=== PATIENT | male | born 1940 | race Caucasian/White ===

== ENCOUNTER 2021-06-30 17:21 | Inpatient (IN) ==
[2021-06-30] MEDS ORDERED: Furosemide 40 MG/4 ML VIAL IVP ONE (17:46)
[2021-06-30] MEDS ORDERED: Naloxone 0.4 MG/ML INJ IVP PRN (20:08)
[2021-06-30] MEDS ORDERED: Melatonin 3 MG TABLET PO PRN (20:08)
[2021-06-30 20:37] LABS: Hematocrit 23.3 % (37.5-50.1); Hemoglobin 7.1 g/dL (12.9-16.9); Mean Corpuscular HGB Conc 30.5 g/dL (31.6-35.5); Mean Corpuscular Hemoglobin 26.7 pg (28.0-33.3); Mean Corpuscular Volume 87.6 fL (83.0-100.0); Mean Platelet Volume 10.3 fL (9.4-12.4); Platelet Count 456 K/mcL (140-400); Red Blood Count 2.66 M/mcL (4.19-5.50); White Blood Count 12.5 K/mcL (4.3-11.1)
[2021-06-30 20:47] LABS: Prothrombin Time 22.6 Seconds (9.4-12.1)
[2021-06-30 20:59] LABS: Albumin/Globulin Ratio 1.3 (1.1-2.2); Bilirubin,Total 0.4 mg/dL (0.3-1.0); Calcium 9.3 mg/dL (8.6-10.3); Globulin 3.2 g/dL (2.4-3.5); Total Protein 7.2 g/dL (6.4-8.9)
[2021-07-01 01:04] LABS: Basophils # 0.1 K/mcL (0.0-0.2); Basophils % 0.5 %; Eosinophils # 0.1 K/mcL (0.0-0.6); Eosinophils % 1.2 %; Hematocrit 21.5 % (37.5-50.1); Hemoglobin 6.6 g/dL (12.9-16.9); Immature Granulocytes % 0.4 % (0-4); Lymphocytes # 3.3 K/mcL (0.6-4.6); Lymphocytes % 29.3 %; Mean Corpuscular HGB Conc 30.7 g/dL (31.6-35.5); Mean Corpuscular Hemoglobin 26.8 pg (28.0-33.3); Mean Corpuscular Volume 87.4 fL (83.0-100.0); Mean Platelet Volume 10.4 fL (9.4-12.4); Monocytes # 1.4 K/mcL (0.0-1.3); Neutrophils # 6.4 K/mcL (1.6-8.9); Platelet Count 423 K/mcL (140-400); Red Blood Count 2.46 M/mcL (4.19-5.50); Red Cell Distribution Width 18.1 % (11.5-14.5); Segmented Neutrophils % 56.6 %; White Blood Count 11.3 K/mcL (4.3-11.1)
[2021-07-01 01:13] LABS: INR 1.8; Prothrombin Time 19.6 Seconds (9.4-12.1)
[2021-07-01 01:15] LABS: Activated Partial Thrombo Time 34.4 Seconds (26.0-36.0)
[2021-07-01 01:18] LABS: Potassium 4.8 mEq/L (3.5-5.1)
[2021-07-01] MEDS: Pantoprazole 40 MG VIAL IVP SCH ×2 (02:42→12:27)
[2021-07-01] MEDS: Furosemide 40 MG/4 ML VIAL IVP SCH (08:09)
[2021-07-01] MEDS: Finasteride 5 MG TABLET PO SCH (08:09)
[2021-07-01 08:25] LABS: Hematocrit 20.7 % (37.5-50.1); Hemoglobin 6.3 g/dL (12.9-16.9)
[2021-07-01] MEDS ORDERED: Aspirin 81 MG TAB.CHEW PO SCH (09:00)
[2021-07-01] MEDS ORDERED: 0.9 % Sodium Chloride 250 ML ONE (12:10)
[2021-07-01] MEDS ORDERED: *HR* Propofol 200 MG/20 ML VIAL IVP ONE (14:42)
[2021-07-01] MEDS ORDERED: Lidocaine -MPF 2% 5 ML VIAL ONE (14:45)
[2021-07-01] MEDS: carvediloL 6.25 MG TABLET PO SCH (15:58)
[2021-07-01] MEDS ORDERED: Pantoprazole 40 MG VIAL IVP SCH (22:00)
[2021-07-02] MEDS: Pantoprazole 40 MG VIAL IVP SCH ×2 (00:48→13:31)
[2021-07-02 04:26] LABS: Hematocrit 21.8 % (37.5-50.1); Hemoglobin 6.9 g/dL (12.9-16.9); Mean Corpuscular HGB Conc 31.7 g/dL (31.6-35.5); Mean Corpuscular Hemoglobin 27.5 pg (28.0-33.3); Mean Corpuscular Volume 86.9 fL (83.0-100.0); Mean Platelet Volume 10.4 fL (9.4-12.4); Platelet Count 397 K/mcL (140-400); Red Blood Count 2.51 M/mcL (4.19-5.50); Red Cell Distribution Width 17.2 % (11.5-14.5); White Blood Count 11.5 K/mcL (4.3-11.1)
[2021-07-02 04:44] LABS: Calcium 8.7 mg/dL (8.6-10.3); Potassium 5.1 mEq/L (3.5-5.1)
[2021-07-02] MEDS: carvediloL 6.25 MG TABLET PO SCH ×2 (07:51→18:07)
[2021-07-02] MEDS: Furosemide 40 MG/4 ML VIAL IVP SCH (07:51)
[2021-07-02] MEDS: Finasteride 5 MG TABLET PO SCH (07:51)
[2021-07-02] MEDS ORDERED: 0.9 % Sodium Chloride 250 ML ONE (08:51)
[2021-07-02 13:03] LABS: Hematocrit 27.3 % (37.5-50.1)
[2021-07-02 13:05] LABS: Hemoglobin 8.5 g/dL (12.9-16.9)
[2021-07-02 18:39] LABS: Hematocrit 27.1 % (37.5-50.1); Hemoglobin 8.5 g/dL (12.9-16.9)
[2021-07-03] MEDS: Pantoprazole 40 MG VIAL IVP SCH (01:39)
[2021-07-03 02:57] LABS: Hematocrit 25.7 % (37.5-50.1); Hemoglobin 8.1 g/dL (12.9-16.9); Mean Corpuscular HGB Conc 31.5 g/dL (31.6-35.5); Mean Corpuscular Volume 88.9 fL (83.0-100.0); Mean Platelet Volume 10.3 fL (9.4-12.4); Platelet Count 370 K/mcL (140-400); Red Blood Count 2.89 M/mcL (4.19-5.50); Red Cell Distribution Width 17.6 % (11.5-14.5); White Blood Count 11.2 K/mcL (4.3-11.1)
[2021-07-03 03:13] LABS: Calcium 8.6 mg/dL (8.6-10.3); Potassium 5.4 mEq/L (3.5-5.1)
[2021-07-03] MEDS: Finasteride 5 MG TABLET PO SCH (07:40)
[2021-07-03] MEDS: carvediloL 6.25 MG TABLET PO SCH (07:40)
[2021-07-03] MEDS: Furosemide 40 MG/4 ML VIAL IVP SCH (07:41)
[2021-07-03] MEDS ORDERED: Iron Sucrose Complex 200 MG in 0.9 % Sodium Chloride 100 ML IVPB ONE (10:48)
[2021-07-03 11:48] VITALS: BP 120/65; PULSE 72; TEMP 97.9; O2SAT 97
== END 2021-07-03 13:30 | disposition home or self-care (01) | DRG 377 ==
LOC: 2ANU 17:21 → EMEROOARM 17:21 → SUATTDRO 20:50 → 2ANU 21:32
PROVIDERS: ADMIT Student in an Organized Health Care Education/Training Program; ATTEND Internal Medicine
PROC: ENDOEBX (2021-07-01 11:15)